=== PATIENT | female | born 1960 | race Hispanic/Latino ===

== ENCOUNTER 2016-05-20 08:51 | Day surgery (SDC) | payer MEDICAID ==
--- NOTE | 2016-05-19 10:55 | Anesthesia Consultation ---
Anesthesia Consult and Med Hx Date of service: 05/19/16 - Airway Anesthetic Teeth Evaluation: Edentulous Mental/Hyoid Distance: Adequate Mallampati Class: Class II Intubation Access Assessment: Probably Good - Pulmonary Exam CTA: Yes - Cardiac Exam Cardiac Exam: RRR - Pre-Operative Health Status ASA Pre-Surgery Classification: ASA3 Proposed Anesthetic Plan: General - Pulmonary Hx Smoking: Yes (1PPW) SOB: Yes (minemal) COPD: Yes - Cardiovascular System Hx Coronary Artery Disease: Yes Hx Heart Attack/AMI: Yes (OR X 3; LAST OR 2013) Hx Heart Murmur: Yes - Central Nervous System Hx Psychiatric Problems: No (TAKES BUPROPION TO HELP STOP SMOKING) - Other Systems Hx Alcohol Use: No Hx Substance Use: No Hx Cancer: No - Additional Comments Anesthesia Medical History Comments: cardiac clearence pending
[~2016-05-20 08:51] MED LIST: LACTATED RINGERS 1,000 ML IV SCH; PEPCID PO NR; VERSED IV NR
[2016-05-20] MEDS ORDERED: VERSED IV PRN (09:43)
[2016-05-20] MEDS ORDERED: DIPRIVAN 10 MG/ML IV ONE (10:18)
[2016-05-20] MEDS ORDERED: SUBLIMAZE ONE (10:18)
[2016-05-20] MEDS ORDERED: DECADRON ONE (10:20)
[2016-05-20] MEDS ORDERED: XYLOCAINE MPF 2% ONE (10:20)
[2016-05-20] MEDS ORDERED: ZOFRAN ONE (10:20)
--- NOTE | 2016-05-20 11:09 | Anesthesia Day of Surgery ---
Anesthesia Day of Surgery - Day of Surgery Patient Examined: Yes Patient H&P Reviewed: Yes Patient is NPO: Yes
[2016-05-20] MEDS ORDERED: ePHEDrine SULFATE ONE (11:42)
[2016-05-20] MEDS ORDERED: FLAGYL 500 MG/100 ML 100 ML IV NR (12:00)
--- NOTE | 2016-05-20 12:06 | Short Stay Summary ---
Short Stay Documentation Date of service: 05/20/16 - Allergies and Medications Current Medications: Allergies morphine Allergy (Verified 05/17/16 10:28) Swelling Penicillins Allergy (Verified 05/17/16 10:28) Rash Home Medications Medication Instructions Recorded Confirmed Last Taken Type Aspirin EC [Aspirin Enteric Coated 81 mg PO QDAY 05/17/16 05/17/16 1 Week Ago History TAB] Bupropion HCl [Bupropion HCl Sr] 150 mg PO BID 05/17/16 05/17/16 05/20/16 07:30 History Carvedilol [Coreg] 12.5 mg PO BID 05/17/16 05/17/16 05/20/16 07:30 History Clopidogrel Bisulfate [Plavix] 75 mg PO DAILY 05/17/16 05/17/16 1 Week Ago History Lisinopril [Zestril TAB] 10 mg PO QDAY 05/17/16 05/17/16 05/20/16 07:30 History Rosuvastatin Calcium 10 mg PO DAILY 05/17/16 05/17/16 05/20/16 07:30 History Vitamin B Complex [Natural B-100] 1 each PO DAILY 05/17/16 05/17/16 05/20/16 07: 30 History Active Medications Lactated Ringer's (Lactated Ringers) 1,000 mls @ 100 mls/hr IV DIRECT DEN Last Admin: 05/20/16 09:30 Dose: 100 mls/hr Metronidazole (Flagyl 500 Mg/100 Ml) 100 mls @ 200 mls/hr IV PREOP NR Stop: 05/20/16 23:59 Midazolam HCl (Versed) 2 mg IV PREOP PRN PRN Reason: Anxiety Stop: 05/20/16 23:29 Last Admin: 05/20/16 09:54 Dose: 2 mg - Brief post op/procedure progress note Date of procedure: 05/20/16 Pre-op diagnosis: rt renal stone, s/p stent Post-op diagnosis: same Procedure: rt eswl Anesthesia: ALEJANDRAA Surgeon: SHANI BANERJEE Estimated blood loss: none Condition: stable - Hospital course Hospital course: percocet 10, post op info on chart - Disposition Condition at discharge: Stable Disposition: DISCHARGED TO HOME OR SELFCARE
--- NOTE | 2016-05-20 12:21 | Post Anesthesia Evaluation ---
- Post Anesthesia Evaluation Patient Participated: Yes Airway Patent: Yes Stable Respiratory Function: Yes Nausea/Vomiting: No Temp > 96.8F: Yes Pain Manageable: Yes Adequeate Hydration: Yes Anesthesia Complications: No
[2016-05-20] MEDS ORDERED: NACL 0.9% 100 ML ONE (12:38)
[2016-05-20] MEDS ORDERED: ROBINUL ONE (12:38)
[2016-05-20] MEDS ORDERED: NEO SYNEPHRINE ONE (12:38)
--- NOTE | 2016-05-20 13:09 | Operative Report ---
PREOPERATIVE DIAGNOSIS: Right renal stone, status post stent placement. POSTOPERATIVE DIAGNOSIS: Right renal stone, status post stent placement. PROCEDURE: Extracorporeal shock wave lithotripsy. SURGEON: Steven Tinsley MD ANESTHESIA: General. ANESTHESIOLOGIST: Renetta Schulte MD ESTIMATED BLOOD LOSS: Minimal. FLUIDS: Crystalloid. COMPLICATIONS: No complications. INDICATIONS: This patient is a 55-year-old female seen by Dr. Young in the office, found to have a right-sided stone. She actually underwent cystoscopy stent placement in different setting and presents now for a lithotripsy. She was cleared from a cardiac standpoint from Dr. Rosales with [facility]. Risks, benefits, and complications were explained to the patient and her family. They agreed to proceed with surgical intervention. DESCRIPTION OF PROCEDURE: The patient was taken to the operative suite, placed in a supine position. After adequate general anesthesia, stone was localized in 2 planes using fluoroscopy. Extracorporal shock wave lithotripsy was administered with maximum kV of 5 and 2500 shocks. Adequate fragmentation could be appreciated. The patient tolerated the procedure well. She was given Percocet 10/325. She is to follow up with Dr. Young in the office. She also was given a strainer. JOB# [id number] [facility]
[2016-05-20 13:53] VITALS: BP 100/50
== END 2016-05-20 08:52 | disposition home or self-care (01) ==
LOC: OR 08:51
PROVIDERS: ATTEND Urology
DX: N20.0 Calculus of kidney (principal); E78.5 Hyperlipidemia, unspecified; I10 Essential (primary) hypertension; I25.2 Old myocardial infarction; I25.10 Atherosclerotic heart disease of native coronary artery without angina pectoris; J44.9 Chronic obstructive pulmonary disease, unspecified; F17.210 Nicotine dependence, cigarettes, uncomplicated; Z83.3 Family history of diabetes mellitus; Z82.49 Family history of ischemic heart disease and other diseases of the circulatory system; Z84.1 Family history of disorders of kidney and ureter
CPT/HCPCS: 50590; J1100; J2250; J2370; J2405; J2704; J3010; J7120